=== PATIENT | female | born 1980 | race Caucasian/White ===

== ENCOUNTER 2025-05-06 10:38 | Inpatient (IN) | payer OTHER ==
[~2025-05-06] VITALS: Ht 172.7 cm; Wt 150.5 kg
[2025-05-06] VITALS (16 sets, daily range): BP systolic 109–137; BP diastolic 61–83
[2025-05-06 10:50] LABS: BASOPHILS 0.1 % (0.1-1.2); EOSINOPHILS 0 % (0.7-5.8); LYMPHOCYTES 3.3 % (19.3-51.7); MCH 28.0 PG (25.6-32.2); MCHC 33.0 g/dL (32.2-35.5); MCV 84.6 fL (79.4-94.8); MONOCYTES 5.4 % (4.7-12.5); NEUTROPHILS 90.8 % (34.0-71.1); RBC 5.08 M/uL (3.93-5.22)
[2025-05-06 11:10] LABS: LACTIC ACID, BLOOD 1.4 mmol/L (0.4-2.0)
[2025-05-06 11:11] LABS: ALCOHOL, MEDICAL <3 ng/dL (<3); ALT (SGPT) 46 U/L (14-59); AST (SGOT) 46 U/L (15-37); GLOMERULAR FILTRATION RATE,EST 110 mL/min (>60); PROTEIN, TOTAL 7.4 g/dL (6.4-8.2); UREA NITROGEN 9 mg/dL (7-18)
[2025-05-06 11:15] LABS: BLOOD/HGB, URINE NEGATIVE (Negative); KETONE, URINE NEGATIVE (Negative); LEUK ESTERASE, URINE NEGATIVE (negative); NITRITE, URINE NEGATIVE (negative)
[2025-05-06 11:21] LABS: EPITHELIAL CELLS, URINE SQUAMOUS 1+ /lpf (0-1+)
[2025-05-06 11:22] LABS: BACTERIA, URINE NONE SEEN /hpf (negative); CASTS, URINE NONE SEEN \\lpf; CRYSTALS, URINE NONE SEEN (0-1+); REFLEX CULTURE, URINE No (No)
[2025-05-06 11:39] LABS: AMPHETAMINES, URINE NEGATIVE (NEGATIVE); BARBITURATES, URINE NEGATIVE (NEGATIVE); BENZODIAZEPINE, URINE POSITIVE (NEGATIVE); CANNABINOID, URINE POSITIVE (NEGATIVE); COCAINE, URINE NEGATIVE (NEGATIVE); ECSTASY, URINE NEGATIVE (NEGATIVE); FENTANYL, URINE NEGATIVE (NEGATIVE); METHADONE, URINE NEGATIVE (NEGATIVE); OPIATES, URINE NEGATIVE (NEGATIVE); OXYCODONE, URINE NEGATIVE (NEGATIVE); PHENCYCLIDINE, URINE NEGATIVE (NEGATIVE)
[2025-05-06] MEDS ORDERED: KETAMINE in NS 50 MG/5 ML SYR IV ONE (11:45)
[2025-05-06] MEDS ORDERED: PANTOPRAZOLE SODIUM 40 MG/10 ML VIAL IV SCH (13:07)
[2025-05-06] MEDS ORDERED: MAGNESIUM SULFATE 4 GM/100 ML BAG IV ONE (13:15)
[2025-05-06] MEDS ORDERED: LACTATED RINGER'S 1,000 ML IV SCH (13:45)
--- NOTE | 2025-05-06 13:50 | NUR ---
PT ARRIVES TO UNIT VIA STRETCHER WITH RT AND ED RN - PT INTUBATED AND SEDATED WITH PROPOFOL. SLIDE TO BED WITHOUT DISTRESS OR COMPRIMISE OF LINES/TUBES. FAMILY AT BEDSIDE. VS STABLE. , ADMISSION ASSESSMENT STARTED. SOME HISTORY OBTAINED FROM - RX RECONCILE FROM [facility] REQUESTED THROUGH PHARMACY.
[2025-05-06] MEDS ORDERED: AMP/SULBACTAM SOD 3 GM in SODIUM CHLORIDE 0.9% 100 ML IV SCH (14:00)
--- NOTE | 2025-05-06 14:00 | NUR ---
PT UNDER 1:1 DIRECT OBS WITH Q15 MIN CHARTING BY CITY JAILER RELATED TO HIGH RISK SUICIDE SCORE. SKIN ASSESSMENT COMPLETED WITH LINN RN - 2 WELTS NOTED ON LEFT ELBOW APPROX 50 CENT PIECE IN SIZE. STATES UNKNOWN ORIGIN.
--- NOTE | 2025-05-06 14:24 | NUR ---
PT TRANSFERED TO UNIT , PLACED ON DRAGER 300 VENT , EET SECURE 23 @ TEETH BITEBLOCK IN PLACED , CUFF PRESSURE 28, AMBU W MASK AT HEAD OF BED/ INLINE SUCTION/ORAL READY FOR USE . RN DOING ANNITAL ASSESSMENT .
--- NOTE | 2025-05-06 14:45 | NUR ---
CALL FROM POISON CONTROL WITH SUGGESTION OF HCG LAB, CK AND REPEAT EKG 4 HOURS POST ORIGINAL. CALL PLACED TO MD TO REVIEW, ORDERS PLACED. PT REMAINS STABLE ON CURRENT VENT SETTINGS, TOLERATING WITHOUT S/S OF DISCOMFORT. VS STABLE ON MONITOR.
[2025-05-06] MEDS ORDERED: VRAYLAR1.5 MG PO (15:30)
[2025-05-06] MEDS ORDERED: LAMICTAL200 MG PO (15:31)
[2025-05-06] MEDS ORDERED: BUSPIRONE HCL10 MG PO (15:32)
[2025-05-06] MEDS ORDERED: NAPROXEN500 MG PO (15:33)
[2025-05-06] MEDS ORDERED: PAROXETINE HCL30 MG PO (15:35)
[2025-05-06] MEDS ORDERED: PRAZOSIN HCL2 MG PO (15:36)
[2025-05-06] MEDS ORDERED: OMEPRAZOLE40 MG PO (15:41)
[2025-05-06] MEDS ORDERED: VALIUM2 MG PO (15:41)
[2025-05-06] MEDS ORDERED: ONDANSETRON ODT4 MG PO (15:43)
--- NOTE | 2025-05-06 16:30 | NUR ---
PT REPOSISTIONED AND PASSIVE ROM COMPELTE. URINE NOTED TO HAVE SEDIMENT WITH BRIGHT PINK COLOR, CLOUDY. PINK COLOR ENOUGHT TO STAIN DRAINAGE TUBE. OG CONTENTS IN CANISTER BLUE/GREEN AND THIN, NOT BILE CONSISTENCY. MD AWARE AND VISUALIZED BOTH FINDINGS. UPON FURTHER REVIEW WITH HE STATES THAT SHE DOES TAKE NYQUIL "SOMETIMES" TO SLEEP, DENIES SEEING NYQUIL BOTTLE OF BENEDRYL BOTTLE IN BEDROOM AT SCENE. UNABLE TO ANSWER HOME MEDICATION REVIEW QUESTIONS, UNSURE OF MENTAL HEALTH DIAGNOSIS DESPITE ATIVAN RX LABEL PROVIDED WRITTEN FROM [facility].
--- NOTE | 2025-05-06 17:36 | NUR ---
POISON CONTROL UPDATED VIA TELEPHONE - NO NEW RECOMENDATIONS AT THIS TIME. URINE AND OG CONTENT COLORS REVIEWED WITH THEM, NOT A FINDING CONSISTENT WITH ATIVAN OR BACLOFEN THAT THEY ARE AWARE OF. COMP URINE TEST SEND OUT OBTAINED.
--- NOTE | 2025-05-06 18:30 | NUR ---
PT REPOSISTIONED AND BED BATH COMPLETE. ORAL CARE COMPLETED WITH PT GRIMACE AND COUGH WITH SUCTION. RESTRAINTS RELEASED AND ROM PREFORMED. ASSESSMENT UNCHANGED FROM PREVIOUS. VS STABLE, VENT SETTINGS SAME. KERFER MACHINE OPERATOR REMAINS IN ROOM FOR Q15 MINUTE CHARTING SUICIDE PROTOCOL.
--- NOTE | 2025-05-06 20:49 | NUR ---
ASSUMPTION OF CARE This RN assumed care of pt at 1900. Upon initial assessment, pt is intubated, sedated on propofol, RASS -3. Pt has minimal response to painful stimuli. No movement observed in BUE, only some movement of the foot noted to the RLE. Pt tolerating the vent well, initiating spontaneous breaths. ETT inline suction contents shah, thick, moderate amount. Cough/gag +. Lung sounds clear/diminished. Bowel sounds hypoactive/absent. OGT to LIWS with brown/green output. Kaplan in place with pink/yellow, cloudy output. Pt is vitally stable at this time.
--- NOTE | 2025-05-06 20:59 | NUR ---
Pt's heavenly left to go home, will return in AM.
[2025-05-06] MEDS ORDERED: ENOXAPARIN SODIUM 40 MG/0.4 ML SYR SUB-Q SCH (21:00)
--- NOTE | 2025-05-06 21:48 | NUR ---
"UPDATE: VBG RESULTS PH 7.442 | PCO2 39.3 | pO2 70 | HCO3 26.6 RESULTS DISCUSSED WITH RT & DR. WHITFIELD. VENT CHANGES FOLLOWS: FIO2 24% REPEAT VBG @ 0200"
[2025-05-07] VITALS (24 sets, daily range): BP systolic 106–164; BP diastolic 55–119
--- NOTE | 2025-05-07 02:43 | NUR ---
UPDATE: PT AGITATED, FIGHTING VENTILATOR, AND GAGGING ON TUBE AFTER Q2 TURN. RASS +1-2. SEDATION TITRATED WITH POSITIVE RESPONSE. SEE MEDICATION FLOWSHEET FOR DETAILS.
[2025-05-07 05:16] LABS: BASOPHILS 0.3 % (0.1-1.2); EOSINOPHILS 0.2 % (0.7-5.8); LYMPHOCYTES 12.2 % (19.3-51.7); MCH 28.1 PG (25.6-32.2); MCHC 33.2 g/dL (32.2-35.5); MCV 84.5 fL (79.4-94.8); MONOCYTES 6.8 % (4.7-12.5); NEUTROPHILS 80.0 % (34.0-71.1); RBC 4.31 M/uL (3.93-5.22)
[2025-05-07 05:34] LABS: GLOMERULAR FILTRATION RATE,EST 116.0 mL/min (>60); UREA NITROGEN 9.0 mg/dL (7-18)
[2025-05-07] MEDS ORDERED: POTASSIUM CHLORIDE 40 MEQ in DEXTROSE 5% 250 ML IV ONE (08:00)
[2025-05-07] MEDS ORDERED: ENOXAPARIN SODIUM 40 MG/0.4 ML SYR SUB-Q SCH (09:00)
--- NOTE | 2025-05-07 09:24 | NUR ---
IN PATIENT'S ROOM FOR AM ASSESSMENT, VITALS, CREMATORY ATTENDANT. PT'S NELLA AT BEDSIDE. PT REMAINS 1:1 WITH PIGS FEET CLEANER IN ROOM FOR SAFETY PRECAUTIONS. PT ON VENT WITH SETTINGS OF VT 420, FI02 24%, VC/AC 16, PEEP 5. INITIALLY, PROPOFOL WAS AT 50 MCG/KG/MIN AND RASS WAS -5. CXR COMPLETE AND PT DID NOT AROUSE TO THIS STIMULI. SCDs IN PLACE. IVF CONTINUE AT 125 ML/HR. AFTER SPEAKING WITH MD, PT'S SEDATION TURNED DOWN AROUND 0840, AND TURNED DOWN AGAIN AT 0905. PT BECOMES RESTLESS, SEEMINGLY AGITATED, HR ELEVATED TO 120s, RR UP TO 35-40 AND SEEMS UNCOMFORTABLE. MD AT BEDSIDE AND ASSESSES PATIENT AND DECIDES TO RETURN PATIENT TO SEDATION AND TRY SAT AGAIN TOMORROW. PROPOFOL TURNED BACK TO 30 MCG/KG/MIN. RT IN ROOM AND PLACES PATIENT ON SBT. OG TUBE DRAINING THIN BROWN LIQUID. ROSA PUTTING OUT YELLOW URINE WITH SOME SEDIMENT NOTED. PT NOW STARTING TO CALM. UPDATED ON PLAN OF CARE WHILE MD IN ROOM AND BY THIS RN. RESTRAINTS IN PLACE TO PROTECT PATIENT.
--- NOTE | 2025-05-07 10:00 | NUR ---
PATIENT UNDERWENT SAT AND SBT. PT FAILED SAT BUT DIDN'T NECESSARILY FAIL SBT. PT TOO AGITATED AND RESTLESS FOR SAT TO BE SUCCESSFUL, AND WILL BE ATTEMPTED AGAIN TOMORROW. 1:1 OBS REMAINS.
[2025-05-07 11:18] LABS: ALT (SGPT) 29.0 U/L (14-59); AST (SGOT) 23.0 U/L (15-37); PROTEIN, TOTAL 6.2 g/dL (6.4-8.2)
--- NOTE | 2025-05-07 11:38 | NUR ---
PT IN ROOM AT BEDSIDE.
[2025-05-07] MEDS ORDERED: PHARMACY RENAL DOSE ADJUSTMENT 1 DOSE MISC PO SCH (12:00)
--- NOTE | 2025-05-07 12:12 | NUR ---
PT COUGHING AND GRIMANCING. MOUTH AND VENTILATION SUCTION COMPLETED AND PT CONTINUED TO COUGH. PT PROPOFOL TITRATED UP. AFTER TWO MINUTES PT FACIAL FEATURES MORE RELAXED AND PT NO LONGER COUGHING.
--- NOTE | 2025-05-07 12:40 | NUR ---
MIDLINE INSERTION NOTE: ASKED BY DR. WHITFIELD TO EVAL PATIENT FOR POTENTIAL MIDLINE PLACEMENT. PATIENT HAS IV 18 G IN RIGHT UPPER ARM CURRENTLY. LEFT ARM EVALUATED FIRST AND CEPHALIC VEIN IS VISIBLE BUT NOT STRAIGHT, AND NOT A GOOD CANDIDATE. BASILIC VEIN IS LARGE, STRAIGHT AND EASILY COLLAPSABLE. ESTIMATED BY SITE [facility] US THAT AN 18G WOULD TAKE UP ABOUT 34% OF VEIN DIAMETER. 1% LIDO USED TO NUMB SKIN AFTER CHLORAPREP USED. VEIN ACCESSED ON 1ST ATTEMPT AND MIDLINE GUIDED INTO VEIN. DIFFICULTY WITH THREADING CATHETER COMPLETELY IN BUT BLOOD RETURN IS PRESENT. ABLE TO FLOAT CATHETER IN MUCH POSSIBLE. 1 CM IS LEFT EXPOSED. BLOOD RETURN IS STILL ABLE TO BE ASPIRATED WHEN TENSION IS PLACED ON CATHETER AND ASK WELL TENSION PULLED UPWARD PULLING LARGE SKIN FLAP UP ON UPPER ARM. EDUCATION MATERIAL LEFT IN CHART AND REPORT GIVEN TO KENDY AMARAL.
[2025-05-07] MEDS ORDERED: ACETAMINOPHEN 650 MG SUPP PR PRN (13:30)
--- NOTE | 2025-05-07 13:30 | NUR ---
PATIENT GIVEN FULL BED BATH WITH LINEN CHANGE. PT TOLERATED WELL. ROSA CARE PROVIDED. SKIN IS INTACT THROUGHOUT. SMALL AMOUNTS OF BM SMEAR WERE NOTED WHEN WIPING PATIENT'S RECTAL AREA. SCDs REMAIN ON. IV POTASSIUM HAS COMPLETED. RESTRAINTS REMAIN IN PLACE FOR PROTECTION OF ETT.
--- NOTE | 2025-05-07 17:20 | NUR ---
PATIENT RESTING IN BED AT THIS TIME WIHT AT BEDSIDE. 1:1 SUPERVISION REMAINS. PT CURRENTLY ON 50 MCG/KG/MIN OF PROPOFOL AND RASS IS -4. WHEN PATIENT IS LESS SEDATED, SHE DOES DISPLAY SOME SIGNS OF AGITATION BY SOME TWITCHING, HEART RATE ELEVATED AND COUGHING AGAINST THE ETT. URINE OUTPUT HAS DECREASED THIS AFTERNOON, BUT OVER 1 L WAS DRAINED EARLIER TODAY.
[2025-05-07] MEDS ORDERED: LORazepam 2 MG/ML VIAL IV STA (18:23)
--- NOTE | 2025-05-07 18:40 | NUR ---
PATIENT BECOMING MORE AGITATED EVEN WITH PROPOFOL AT 50 MCG/KG/MIN. HR ELEVATED, TEMP UP TO 100.4, RR UP TO 30s, TWITCHING AND OVERALL APPEARING RESTLESS. STAT DOSE OF 2 MG IV ATIVAN GIVEN. AT 1829 PATIENT HAD A SMALL BURST OF SVT, 160s. AFTER ATIVAN WAS GIVEN, HR SETTLING DOWN TO 70-80s, RR DOWN TO 26 AND PT APPEARING MORE CALM. PT CONFIRMS THAT PATIENT TAKES HER VALIUM PRESCRIPTION DAILY 1-[address] WHITFIELD AWARE OF SVT. WILL CONTINUE TO MONITOR.
[2025-05-07] MEDS ORDERED: LORazepam 2 MG/ML VIAL IV PRN (19:15)
--- NOTE | 2025-05-07 19:15 | EKG ---
[facility] [address] [place], [place] [address] Signed Normal sinus rhythm T wave abnormality, consider anterolateral ischemia Abnormal ECG No previous ECGs available Confirmed by Rosie Grijalva MD ([id number]) on 05/07/2025 7:14:50 PM Electronically Signed By: ROSIE GRIJALVA MD 05/07/251914 PATIENT NAME: SUNITHA ARIAS Electrocardiogram DATE OF : 80 PHYSICIAN: ROSIE GRIJALVA MD REPORT #: [id number] REPORT IS CONFIDENTIAL AND NOT TO BE RELEASED WITHOUT AUTHORIZATION
--- NOTE | 2025-05-07 19:15 | EKG ---
[facility] [address] [place] [address] Signed Normal sinus rhythm T wave abnormality, consider inferior ischemia T wave abnormality, consider anterior ischemia Abnormal ECG When compared with ECG of 06-MAY-2025 11:05, Questionable change in QRS axis Nonspecific T wave abnormality now evident in Inferior leads Confirmed by Rosie Grijalva MD ([id number]) on 05/07/2025 7:15:28 PM Electronically Signed By: ROSIE GRIJALVA MD 05/07/251914 PATIENT NAME: SUNITHA ARIAS Electrocardiogram DATE OF : 80 PHYSICIAN: ROSIE GRIJALVA MD REPORT #: [id number] REPORT IS CONFIDENTIAL AND NOT TO BE RELEASED WITHOUT AUTHORIZATION
[2025-05-07] MEDS ORDERED: DEXTROSE 5% - NACL 0.45% 1,000 ML IV SCH (20:15)
[2025-05-07] MEDS ORDERED: IBLOOD GLUCOSE TEST STRIP 1 EA TEST VI SCH (20:15)
--- NOTE | 2025-05-07 23:17 | NUR ---
Pt had a large liquid/watery stool. During mayela care, pt became increasingly more agitated. RR 30's, fighting ventilator, HR elevated, desaturated to 70's briefly. Suctioned, scant amount of blood tinged sputum. Pt's breathing labored with moderate accessory muslce use. Seen by RT at bedside. PRN Ativan given per order, sedation increased. See medication flowsheet. Improvement in pt condition after the above interventions.
[2025-05-08] VITALS (25 sets, daily range): BP systolic 101–188; BP diastolic 59–137
[2025-05-08] MEDS ORDERED: ALBUTEROL/IPRATROPIUM 3 ML NEB INH PRN (04:30)
[2025-05-08 05:50] LABS: BASOPHILS 0.4 % (0.1-1.2); EOSINOPHILS 1.9 % (0.7-5.8); LYMPHOCYTES 26.4 % (19.3-51.7); MCH 28.2 PG (25.6-32.2); MCHC 33.2 g/dL (32.2-35.5); MCV 84.9 fL (79.4-94.8); MONOCYTES 7.0 % (4.7-12.5); NEUTROPHILS 63.9 % (34.0-71.1); RBC 4.43 M/uL (3.93-5.22)
[2025-05-08 05:59] LABS: GLOMERULAR FILTRATION RATE,EST 113.0 mL/min (>60); UREA NITROGEN 4.0 mg/dL (7-18)
--- NOTE | 2025-05-08 08:18 | NUR ---
REPORT REC'D AND PATIENT CARE RESUMED BY THIS RN. PATIENT ON 80 MCG/KG/MIN OF PROPOFOL AT SHIFT CHANGE AND RESTING COMFORTABLY. WORKING ON TITRATING THIS DOWN AND IS CURRENTLY AT 70 MCG/KG/MIN. PT HAD INCONTINENCE OF BM, AND WAS CHANGED X3 PERSON ASSIST WITH N EW ATTENDS. STOOL IS BROWN AND SOFT. PT'S NELLA IN ROOM AND GIVEN UPDATE. PLAN OF CARE DISCUSSED AND WILL AGAIN ATTEMPT SAT/SBT TODAY. RESTRAINTS REMAIN IN PLACE BILATERALLY FOR PROTECTION OF ETT. PT HAD FREQ BOUTS OF AGITATION THROUGH THE NIGHT AND REQUIRED MORE SEDATION. SCDs REMAIN ON. ROSA DRAINING CLEAR YELLOW URINE.
[2025-05-08 08:29] LABS: ALT (SGPT) 35.0 U/L (14-59); AST (SGOT) 28.0 U/L (15-37); PROTEIN, TOTAL 6.4 g/dL (6.4-8.2)
--- NOTE | 2025-05-08 09:20 | NUR ---
Pt remains on ventilator. Spouse in room and answers questions. Per spouse pt was having back pain. She recieved Baclofen from her mom and has other meds from (diazepam) from [facility] where she goes for mental health. Per spouse they live in a house with 3 steps. Pt usually does not have issues getting in or out of the house. Per Spouse, Dominick, they have had a very rough year with custody for children, multiple house repairs, and fighting in their relationship. He denies pt has had a back injury, she complained of back pain and took meds for pain and went to bed. Spouse states he attempted to awake pt in the am and realized she had vomited and he could not awaken. Dominick is tearful during this conversation. He plans on not leaving pt. I gave him info for [place] and [place]. He states he works in [place]. We looked up the [place] leave and it is the same as [place]. He will apply on line. He denies any needs at this time. States concern Darshana may not wake up or have deficits when she does. They do not have financial concerns. She works at [employer] and he works in [employer] education lia[employer]. 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 Her 18 yo son lives with them.
--- NOTE | 2025-05-08 11:06 | NUR ---
PROPOFOL TITRATED DOWN AND TURNED OFF AT 1023. PATIENT STARTS TO AWAKEN MORE AND IS COUGHING. DEEP SUCTIONED 2-3 TIMES WITH SOME BLOODY TINGED SPUTUM NOTED. PATIENT IS OPENING EYES BETTER TODAY VS YESTERDAY, BUT IS NOT FOLLOWING COMMANDS OF YET. PT'S AT BEDSIDE AND WORKING HARD TO HELP KEEP PATIENT CALM. AFTER A FEW MINUTES OF DECREASING STIMULI, PATIENT IS SETTLING DOWN HERSELF AND RESTING A LITTLE MORE CALMLY. PATIENT IS NOTED TO BE TWITCHING SOME, WITH BOTH LEGS TURNING INWARD WHEN SHE TWITCHES. GOOSEBUMPS ALSO NOTED ON LEFT ARM. 1:1 SUPERSIVION WITH SITTER REMAINS IN PLACE.
--- NOTE | 2025-05-08 12:06 | NUR ---
DR. WHITFIELD GIVEN AN UPDATE BY THIS RN. PATIENT HAS BEEN ON SBT SINCE 1130 PER RT AND WILL BE TRYING SOME WEANING PARAMETERS AT 1230. PT'S REMAINS AT BEDSIDE AND ATTENTIVE TO PATIENT. PATIENT OPENING EYES SPONTANEOUSLY BUT NOT FOLLOWING ANY COMMANDS OF THIS TIME. SCDs REMAIN ON. PT NOTED TO BE MOVING ALL 4 EXT BUT NOT PURPOSEFULLY BUT WHEN COUGHING.
[2025-05-08] MEDS ORDERED: LORazepam 2 MG/ML VIAL IV SCH (13:00)
--- NOTE | 2025-05-08 13:37 | NUR ---
PATIENT UNABLE TO FOLLOW COMMANDS TO PARTICIPATE IN SBT AND WEANING PARAMETERS. PT PLACED BACK ON VENT SETTINGS OF VT 420, VC/AC 14, FI02 24%, AND PEEP OF 5. PATIENT GIVEN SCHEDULED 1 MG ATIVAN. BED BATH AND FULL LINEN CHANGE PROVIDED. PT TOLERATED FAIR WITH SOME COUGHING AND GAGGING ON ETT. PATIENT THEN HAS ANOTHER BM RIGHT AFTER BEING CHANGED. TUBE FEEDS ARE TO BE STARTED TODAY. PRECEDEX GTT TO BE STARTED FOR SEDATION. SCDs OFF FOR A SHORT TIME TO ALLOW PATIENT TO REST. PT'S HAS LEFT FOR LITTLE WHILE BUT WILL RETURN LATER TODAY. PT NOW HAS VISITORS- HER FATHER AND HER STEP MOTHER IN ROOM.
--- NOTE | 2025-05-08 13:43 | NUR ---
PRECEDEX GTT STARTED AT 0.2 MCG/KG/HR. RASS GOAL IS -1.
--- NOTE | 2025-05-08 14:09 | NUR ---
UR CLINICAL REVIEW: MCG-PER MCG REVIEW MEETS INPT FOR DRUG OVERDOSE WITH NEED FOR INTUBATION AND MONITORING INPT 05/06/25 @ 1302 ORDER MATCHES REG CLINICALS FAXED TO [facility] FOR AUTH REVIEW DISCHARGE DISPO PENDING FURTHER MENTAL HEALTH EVAL WHEN STABLE 05/08/25 DC REVIEW
--- NOTE | 2025-05-08 15:32 | NUR ---
TUBE FEEDS STARTED AT 20 ML/HR, JEVITY 1.2, THROUGH OG TUBE. PATIENT IS RESTING WELL ON PRECEDEX AT 0.3 MCG/KG/HR. PT'S NELLA REMAINS IN ROOM. PT REMAINS 1:1 SUICIDE OBS. WILL CONTINUE TO MONITOR.
[2025-05-08] MEDS ORDERED: NACL IV SCH (18:30)
[2025-05-08] MEDS ORDERED: FENTANYL CITRATE IV SCH (18:30)
[2025-05-08] MEDS ORDERED: FENTANYL CITRATE-0.9 % NACL/PF 100 ML IV SCH (19:00)
--- NOTE | 2025-05-08 19:15 | NUR ---
FENTANYL GTT STARTED AT 12.5 MCG/HR. PT HAS BEEN RESTING MOSTLY IN THE LAST COUPLE OF HOURS WITH PRECEDEX AT 0.3 OR 0.4 MCG/KG/HR. PRECEDEX IS CURRENTLY AT 0.3 MCG/KG/HR. IVF CONTINUE AT 125 ML/HR. SCDs REMAIN ON. PT COUGHING AND MOVING LEGS UP IN BED IN DISCOMFORT. WILL CONTINUE TO MONITOR.
--- NOTE | 2025-05-08 19:45 | NUR ---
REPORT RECEIVED FROM ROBERT LARRY. PT HAS JUST BEEN INC OF STOOL, ATTENDS CHANGED, ELISA AND ROSA CARE DONE AND PT REPOSITIONED UP IN BED. PT DID OPEN EYES DURING THIS EPISODE AND DID COUGH SOME BUT OVERALL STAYED CALM AND TOLERATED MOVEMENT WELL. BILAT WRIST RESTRAINTS IN PLACE, PT IS HIGH RISK FOR SUICIDE AND IS UNDER DIRECT OBS WITH 1:1 SITTER.
--- NOTE | 2025-05-08 21:00 | NUR ---
PT HAS BEEN FAIRLY RESTLESS AND HAS NOT BEEN EASILY CALMED. ATTEMPTED TO TITRATE PRECEDEX UP BUT WITH THE HIGHER DOSE OF PRECEDEX HER HEARTRATE DROPS DOWN TO 50'S, P WAVES DISAPPEAR SO PRECEDEX TURNED BACK DOWN. WILL CONT TO MONITOR, SCHEDULED ATIVAN GIVEN WHICH SHE DID SEEM TO RESPOND TO.
--- NOTE | 2025-05-08 21:58 | NUR ---
PT IS OVERALL CALM AND RESTFUL, DOES OCCASIONALLY START TO COUGH AND GAG ON ETT AND GRIMACE AND TRY TO PULL ARMS UP BUT THEN GOES BACK TO SLEEP.
--- NOTE | 2025-05-08 22:33 | NUR ---
PT AWAKE AGAIN AND TRYING TO RAISE UP OFF BED, BITING ETT SETTING OFF VENT ALARMS, PULLING AT RESTRAINTS. PRN ATIVAN GIVEN 1MG IV. PT DOES CALM A FEW MINUTES AFTER ATIVAN GIVEN.
--- NOTE | 2025-05-08 23:00 | NUR ---
CALL TO DR WHITFIELD TO UPDATE HIM ON PTS HR/RHYTHM WITH PRECEDEX AND PTS AGITATION AND NONCOMPLIANCE WITH VENT, ORDER TO SWITCH TO VERSED DRIP FOR SEDATION.
[2025-05-09] VITALS (22 sets, daily range): BP systolic 120–189; BP diastolic 76–107
--- NOTE | 2025-05-09 00:24 | NUR ---
PT INC STOOL, BECAME VERY AGITATED WITH ELISA CARE AND TURNING, VERY NONCOMPLIANT WITH VENT, A LOT OF COUGHING AND BITING AT AND GAGGING ON TUBE. VERSED DRIP IS NOW INFUSING, PRECEDEX IS OFF. PT CALMED WHEN CARE ACTIVITIES WERE DONE. CONT WITH 1:1 DIRECT OBS WITH BILAT SOFT WRIST RESTRAINTS IN PLACE.
--- NOTE | 2025-05-09 03:36 | NUR ---
PT AWAKE, AGITATED, COUGHING, PULLING AT RESTRAINTS, HR UP TO 115'S, RR 22 OVER THE VENT, VERSED TITRATED UP TO 4MG/HR.
--- NOTE | 2025-05-09 05:35 | NUR ---
PT WAS INC STOOL, WITH ANY STIMULATION PT WAKES AND STARTS GAGGING ON ETT AND STRAINING AGAINST RESTRAINTS. PRN ATIVAN GIVEN, PT DID CALM, CLEAN LINENS PLACED UNDER PT. VERSED DRIP TITRATED UP TO 14MG/HR.
[2025-05-09 05:48] LABS: BASOPHILS 0.5 % (0.1-1.2); EOSINOPHILS 2.2 % (0.7-5.8); LYMPHOCYTES 16.2 % (19.3-51.7); MCH 28.0 PG (25.6-32.2); MCHC 34.0 g/dL (32.2-35.5); MCV 82.3 fL (79.4-94.8); MONOCYTES 7.1 % (4.7-12.5); NEUTROPHILS 73.7 % (34.0-71.1); RBC 4.29 M/uL (3.93-5.22)
[2025-05-09 06:01] LABS: GLOMERULAR FILTRATION RATE,EST 118.0 mL/min (>60); UREA NITROGEN 6.0 mg/dL (7-18)
--- NOTE | 2025-05-09 06:45 | NUR ---
CALL TO DR WHITFIELD TO UPDATE ON EVENTS OF THE NIGHT, NEW KCL LEVEL, PT NOT TOLERATING VENT. NEW ORDERS FOR KCL GIVEN AND PLAN TO TRY TO EXTUBATE THE PT.
[2025-05-09] MEDS ORDERED: POTASSIUM CHLORIDE 40 MEQ in DEXTROSE 5% 250 ML IV ONE ×3 (07:00→21:00)
[2025-05-09] MEDS ORDERED: POTASSIUM CHLORIDE 20 MEQ/15 ML CUP PT ONE (07:00)
--- NOTE | 2025-05-09 07:05 | NUR ---
PT INC STOOL, BED CHANGE/ELISA CARE DONE. PT TOLERATED CARES WITH LESS GAGGING AND BITING OF TUBE THAN PREVIOUSLY. AFTER CARES DONE VERSED DRIP TURNED DOWN TO 10MG/HR IN ANTICIPATION OF BREATHING TRIAL TODAY.
--- NOTE | 2025-05-09 08:02 | NUR ---
IN PATIENT'S ROOM FOR AM ASSESSMENT, VITALS AND SWITCHBOARD INSTALLER. PT'S LINEN AND ATTENDS CHANGED JUST PRIOR TO CHANGE OF SHIFT AND NEW GREEN LIFT SHEET PLACED UNDER PATIENT. ETT NOTED TO BE AT 21 AT THE TEETH THIS AM, AND THIS WAS 23 AT THE TEETH YESTERDAY. RT ADVANCES TUBE BACK IN AND CXR COMPLETE. VBG ALSO DRAWN THIS AM. 2 NEW IV SITES IN ARMS PLACED THIS AM BY PVC LOADER RN. PT CONTINUES TO HAVE LOOSE LIQUID BMs. TUBE FEEDS ARE CURRENTLY GOING AT 30 ML/HR AND WILL BE INCREASED TO 40 ML/HR PER ORDER. ORAL POTASSIUM GIVEN PER OG TUBE AND IV POTASSIUM INFUSTING- K 2.8 THIS AM. IV MAG ALSO ORDERED.
[2025-05-09] MEDS ORDERED: MAGNESIUM SULFATE 2 GM/50 ML BAG IV SCH (09:00)
[2025-05-09] MEDS ORDERED: KETAMINE HCL IN NACL, ISO-OSM 100 ML IV SCH (09:00)
--- NOTE | 2025-05-09 09:49 | NUR ---
In and spoke with spouse. He is slightly upset commenting he was told he couldn't spend the night last night. I discussed it is not best to spend the night as everyone needs rest. He would be awakened throughout the night if he stayed. He then commented he went home and he and son had a three hour much needed visit. He again is on the verge of tears during our conversation. He asks if I can assist him with FMLA and [employer] leave. I printed the paper work and returned it to his room. Multiple family members have arrived. Let him know to tell the nurses if he needs help later. I will be glad to help him fill out the paperwork.
--- NOTE | 2025-05-09 10:53 | NUR ---
VISITED DURING SPIRITUAL CARE ROUNDS. PT UNABLE TO VISIT, SUPPORTED BY AND FAMILY IN ROOM. ALL EXPRESSED SITUATIONALLY CONSISTENT EMOTIONS, NO IMMEDIATE NEEDS. [employer] SALES PROVIDED SUPPORTIVE PRESENCE, HOSPITALITY, PRAYER. AND FAMILY EXPRESSED GRATITUDE, HOPE.
--- NOTE | 2025-05-09 10:58 | NUR ---
PATIENT CONTINUES TO BE RESTLESS. SEDATION REMAINS OFF. PT'S AND OTHER FAMILY MEMBERS ARE AT BEDSIDE. ATTENDS CHANGED AFTER SMALL INCONTINENCE OF LIQUID BM. PT SITTING UP MORE IN BED BUT STILL WANTING TO LEAN TO THE LEFT. HR UP TO 120-130s AT TIMES WITH AGITATION AND BP UP TO 178/117. DISCUSSED WITH DR. WHITFIELD ABOUT GIVING PRN ATIVAN AND HE AGREES THAT SHE SHOULD HAVE SOME FOR AGITATION. WILL CONTINUE TO MONITOR.
--- NOTE | 2025-05-09 11:08 | NUR ---
POISION CONTROL CALLED THIS RN AND GIVEN A DAILY UPDATE ON HOW PATIENT IS DOING. THEY REITERATED THAT THIS PATIENT'S PROGRESS APPEARS CONGRUENT WITH HOW A PATIENT LOOKS GOING THROUGH AN OVERDOSE OF BACLOFEN. NO NEW RECOMMENDATIONS. NEW ORDER REC'D TO GIVE PAXIL PER OG TUBE.
--- NOTE | 2025-05-09 12:40 | NUR ---
SBT STARTED AT 1230. PT AGITATED, RESTLESS, AND HR CURRENTLY IN THE 110s UP TO 120s. PT'S REMAINS IN ROOM AND ATTENTIVE TO PATIENT. WILL CONTINUE TO MONITOR. PT REMAINS OFF SEDATION.
[2025-05-09 13:25] LABS: GLOMERULAR FILTRATION RATE,EST 110.0 mL/min (>60); UREA NITROGEN 5.0 mg/dL (7-18)
--- NOTE | 2025-05-09 13:30 | NUR ---
DISCHARGE REVIEW: INTUBATED, CONTINUED NEED FOR IV MEDS, CARDIAC MONITORING, TRENDING LABS, SUICIDE PRECAUTIONS, IV ANTIBIOTICS DC PLAN PENDING FURTHER TREATMENT, EVAL BY MENTAL HEALTH PROVIDER. ADD: PENDING
[2025-05-09] MEDS ORDERED: FUROSEMIDE 40 MG/4 ML VIAL IV ONE (14:00)
--- NOTE | 2025-05-09 15:30 | NUR ---
PATIENT BECAME MORE AGITATED BY 1400 AND HAD BEEN OFF SEDATION SINCE 0900. DR. WHITFIELD NOTIFIED AND IN ROOM TO SEE PATIENT. RT PLACES PATIENT BACK ON VENT SETTINGS OF VT 420, VC/AC 14, FI02 21% AND PEEP 5. KETAMINE DRIP WAS STARTED AT 1400 AT 0.5 MG/KG/HR. PATIENT THEN TAKEN DOWN TO CT AROUND [address] OF HEAD. KETAMINE TITRATED UP TO 0.75 MG/KG/HR BEFORE GOING DOWN TO CT. PT TOLERATED CT SCAN WELL.
[2025-05-09] MEDS ORDERED: FENTANYL CITRATE-0.9 % NACL/PF 100 ML IV SCH (18:30)
--- NOTE | 2025-05-09 18:47 | NUR ---
PATIENT HAS BEEN RESTING FAIRLY WELL ON KETAMINE GTT AT 0.75 MG/KG/HR. PT TURNED FROM RIGHT SIDE TO ALLOWING THE BED TO MANUALLY TURN PATIENT. PATIENT SEEMINGINGLY MORE AGITATED AND RESTLESS, GAGGING ON ETT. ORAL SUCTION PROVIDED AND DEEP SUCTIONING. PT THEN STARTING TO VOMIT TUBE FEED CONTENTS AND THIS WAS SUCTIONED FROM MOUTH AND CLEANED UP. TUBE FEEDS STOPPED AND DISCONNECTED. MD TO BE NOTIFIED.
[2025-05-09 19:10] LABS: GLOMERULAR FILTRATION RATE,EST 115.0 mL/min (>60); UREA NITROGEN 5.0 mg/dL (7-18)
--- NOTE | 2025-05-09 19:30 | NUR ---
REPORT RECEIVED FROM ROBERT LARRY. PT IS RESTING ON VENT, COMPLIANT WITH VENT AND ETT, KETAMINE INFUSING AT 0.75MG/KG/HR. PT IS ON DIRECT OBS 1:1 WITH HIGH SUICIDE RISK PRECAUTIONS PER POLICY. PT HAS RECTAL TUBE IN PLACE, ROSA IN PLACE, OG TUBE IS CLAMPED. CURRENT RASS -3 WHEN PT IS NOT STIMULATED.
--- NOTE | 2025-05-09 19:45 | NUR ---
ASSESSMENT DONE, PT IS ON VENT, TOLERATING IT AT THIS TIME, VC/AC, TV 420, FIO2 21%, PEEP 5, RR 16, PT IS BREATHING 18-20 ON HER OWN WITH SPO2 94%. LUNGS CLEAR. ETT HAS MUCH LESS SECRETIONS THAN IT DID LAST NIGHT. PT IS SEDATED ON KETAMINE DRIP AT 0.75MG/KG/HR. SHE DOES RESPOND TO VERBAL/PHYSICAL STIMULI, DOES NOT OPEN EYES OR FOLLOW COMMANDS. PUPILS BRISK ON RIGHT, SLUGGISH ON LEFT. SHE HAS WRIST RESTRAINTS IN PLACE, CMS INTACT. DIRECT OBS SITTER IN ROOM WITH PT.SHE HAS RECTAL TUBE IN PLACE DRAINING LIQUID BROWN STOOL.
--- NOTE | 2025-05-09 20:30 | NUR ---
PT HAD SOME LEAKAGE AROUND RECTAL TUBE, SHE WAS CLEANED UP AND BARRIER CREAM APPLIED TO ELISA AREA, CATH CARE DONE. RECTAL TUBE REMAINS IN PLACE AND FUNCTIONAL, ROSA PATENT ALSO DRAINING WELL, DARK YELLOW URINE. DURING THIS CARE SHE WOKE UP SOME AND STARTED GAGGING ON ETT, KETAMINE DRIP TURNED UP TO MG/KG/HR. SCHEDULED ATIVAN WAS ALSO GIVEN, SHE DID CALM AFTERWARDS AND WAS ABLE TO TOLERATE CARE ACTIVITIES WITH MINIMAL AGITATION.
--- NOTE | 2025-05-09 20:31 | NUR ---
PT HAD SOME LEAKAGE AROUND RECTAL TUBE, SHE WAS CLEANED UP AND BARRIER CREAM APPLIED TO ELISA AREA, CATH CARE DONE. RECTAL TUBE REMAINS IN PLACE AND FUNCTIONAL, ROSA PATENT ALSO DRAINING WELL, DARK YELLOW URINE. DURING THIS CARE SHE WOKE UP SOME AND STARTED GAGGING ON ETT, KETAMINE DRIP TURNED UP TO 1 MG/KG/HR. SCHEDULED ATIVAN WAS ALSO GIVEN, SHE DID CALM AFTERWARDS AND WAS ABLE TO TOLERATE CARE ACTIVITIES WITH MINIMAL AGITATION.
[2025-05-09] MEDS ORDERED: POTASSIUM CHLORIDE 10 MEQ/100 ML BAG IV SCH (21:00)
[2025-05-09] MEDS ORDERED: MICONAZOLE NITRATE 1 EA BTL TOP SCH (21:00)
--- NOTE | 2025-05-09 22:30 | NUR ---
PT GAGGING ON TUBE, PRN ATIVAN GIVEN PER EMAR.
[2025-05-10] VITALS (23 sets, daily range): BP systolic 110–165; BP diastolic 73–107
--- NOTE | 2025-05-10 00:41 | NUR ---
PT RESTING, TOLERATING VETN, VSS, WRIST RESTRAINTS IN PLACE.
--- NOTE | 2025-05-10 03:06 | NUR ---
PT RESTLESS AND BITING, GAGGING ON ETT, KETAMINE DRIP TITRATED UP TO 1.5 MG/KG/HR.
--- NOTE | 2025-05-10 04:00 | NUR ---
PT HAS BEEN TOLERATING ETT BETTER SINCE TURNING KETAMINE UP.
[2025-05-10 05:26] LABS: BASOPHILS 0.2 % (0.1-1.2); EOSINOPHILS 1.1 % (0.7-5.8); LYMPHOCYTES 15.6 % (19.3-51.7); MCH 28.2 PG (25.6-32.2); MCHC 33.7 g/dL (32.2-35.5); MCV 83.8 fL (79.4-94.8); MONOCYTES 8.2 % (4.7-12.5); NEUTROPHILS 74.4 % (34.0-71.1); RBC 4.50 M/uL (3.93-5.22)
[2025-05-10 05:35] LABS: GLOMERULAR FILTRATION RATE,EST 114.0 mL/min (>60); UREA NITROGEN 9.0 mg/dL (7-18)
--- NOTE | 2025-05-10 05:58 | NUR ---
KETAMINE DRIP TURNED DOWN IN ANTICIPATION OF WEANING TRIAL/AWAKENING TRIAL THIS AM.
--- NOTE | 2025-05-10 07:03 | NUR ---
PTS ATTENDS CHECKED, SMALL AMT LEAKAGE FROM AROUND RECTAL TUBE, LINEN CHANGE DONE. ELISA AREA REDDENED, BARRIER CREAM APPLIED. PT TOLERATED TURNING AND CHANGING BETTER THAN SHE HAS PREVIOUSLY. SHE DOES OPEN EYES ON COMMAND. KETAMINE DRIP TURNED DOWN TO 0.5MG/KG/HR. PT REPOSITIONED UP IN BED.
[2025-05-10] MEDS ORDERED: POTASSIUM CHLORIDE 40 MEQ in DEXTROSE 5% 250 ML IV ONE (07:45)
--- NOTE | 2025-05-10 07:45 | NUR ---
THIS RN RECEIVED REPORT FROM NIGHT RN, REVIEWED W/ RN AT BEDSIDE. NOW PRESENT IN THE ROOM. PT CURRENTLY REMAINS ON VENTILATOR, SETTINGS VT 420, FI02 21, PEEP 5, PIP17; SIZE 7, 23 @ TEETH. PT HAD OG IN PLACE, CLAMPED. KETAMINE RUNNING AT 0.5MG/KG/HR AT THIS TIME. ROSA DRAINING TERI URINE, RECTAL TUBE IN PLACE WITH LIQUID BROWN OUTPUT. PT RESTRAINTS IN PLACE WITH 1:1 SITTER FOR SI/SAFETY. ARJO BED IN PLACE, IT DOES NEED SOME ADJUSTING PATIENT NEEDS REPOSITIONED IN THE BED, ANTHONY CURRENTLY UNDER PATIENT. SCDS IN PLACE.
[2025-05-10 07:59] LABS: ALT (SGPT) 54.0 U/L (14-59); AST (SGOT) 35.0 U/L (15-37); PROTEIN, TOTAL 6.8 g/dL (6.4-8.2)
--- NOTE | 2025-05-10 10:22 | NUR ---
ORAL CARE DONE , ADVANCED EET 20 ORIGINAL 23@TEETH SECURED WITH BB INPLACED , MOVED TO MIDDLE OF THE MOUTH PATIENT IS MOVING MOUTH AROUND AND PUSHING TUBE SECURE AND BITBLOCK FORWARD , CUFF PRESSURE CHECKED PRESSURE 28, SMALL BRIENF PLACEMENT TO CPAP , PT NOT QUITE READY SHALLOW BREATHS AND APNEA VENTILATION ALARMS . WILL WAIT UNTIL PATIENT IS MORE WAKEFUL. SHE DID OPEN EYES AND FOLLOWED INSTRUCTIONS FOR DEEP BREATH . AND RN AT BEDSIDE . ENDTIDAL CHANGED , HUMDITITY FROM THE LINES DRAINED .
[2025-05-10 10:33] LABS: BLOOD/HGB, URINE MODERATE (Negative); KETONE, URINE NEGATIVE (Negative); LEUK ESTERASE, URINE NEGATIVE (negative); NITRITE, URINE NEGATIVE (negative)
[2025-05-10 10:36] LABS: BACTERIA, URINE NONE SEEN /hpf (negative); CASTS, URINE NONE SEEN \\lpf; CRYSTALS, URINE NONE SEEN (0-1+); EPITHELIAL CELLS, URINE 0 /lpf (0-1+); REFLEX CULTURE, URINE No (No)
--- NOTE | 2025-05-10 11:57 | NUR ---
PT ALEJANDRO AMIN FOR VISIT. PROVIDED PRAYER.
[2025-05-10] MEDS ORDERED: VANCOMYCIN HCL 125 MG CAP PO SCH (12:15)
--- NOTE | 2025-05-10 13:00 | NUR ---
ORDER RECEIVED FOR MIDLINE FOR DECREASED VEIN ACCESS. PT IS CURRENTLY INTUBATED AND LOSING IV ACCESS DAILY. LEFT ARM ASSESSED DUE TO PREVIOUS VENOUS ACCESS WITH ULTRASOUND, IDENTIFIED LEFT UPPER ARM VEINS AND ARTERIES. PT HAS LINE IN THE CEPHALIC CURRENTLY, BASILIC VEIN CHOSEN. 18 G CATHETER TO OCCUPY APPROX 24 % OF VEIN AND IS APPROX 2.5 CM DEEP. ARM PREPPED AND POSITIONED, SUPPLIES SET UP IN STERILE FASHION. ARM WAS CLEANSED AND DRAPED. LEFT BASILIC VEIN ACCESSED WITH 18G MIDLINE CATHETER, PT DID NOT MOVE DURING PROCEDURE, DARK RED, NON PULSATILE BLOOD RETURNED. SALINE LOCK ATTACHED AND FLUSHED WITHOUT RESISTANCE AND BLOOD RETURNED EASILY. MIDLINE SECURED WITH STERILE DRESSING AND LABELED APPROPRIATELY. REPORT TO LINN LARRY, PT RETURNED TO PREVIOUS POSITION AND LEFT ARM WRIST RESTRAIN SECURED.
--- NOTE | 2025-05-10 13:06 | NUR ---
RN CURRENTLY IN ROOM FOR PICC PLACEMENT. PT STARTED SBT 1240, RT AWARE AND WORKING WITH NURSING STAFF. WILL CONTINUE TO TRIAL PATIENT LONG TOLERATING. 1:[address] UPON LEAVING THE ROOM WAS EDUCATED ON C.DIFF AND PRECAUTIONS TO TAKE AND HOW TO CLEAN HOME AFTER BEING WITH PATIENT, VERBALIZED UNDERSTANDING. WAS ALSO GIVEN EDUCATION ON CDIFF FOR HOME.
--- NOTE | 2025-05-10 13:30 | NUR ---
PT TOLERATED FAIR, SHE HAD SOME DISREGULATED BREATHING , FAST AND SHALLOW, FOLLOWED BY MORE NORMAL BREATHING PATTERNS, STILL QUITE SLEEPY , DOES OPEN EYES AND FOLLOW SOME COMMANDS . PT RETURNED TO [facility] . PLAN TO DO ANOTHER CPAP TRIAL TOMORROW.
--- NOTE | 2025-05-10 13:47 | NUR ---
Pt cont. on vent. Per nurses she has improved. Spouse returns and states he has completed papers I gave him yesterday. I asked Janice LARRY, if she would ask Dr. Grijalva to sign if he agrees.
--- NOTE | 2025-05-10 14:00 | NUR ---
PATIENT SBT ATTEMPTED. PATIENT HAS BEEN FOLLWING SOME COMMNADS TODAY WITH OPENING EYES AT TIMES, BUT THEN DOESNT FOLLOW COMMANDS OTHER TIMES. PATIENT INCREASED ON KETAMINE GTT TO ALLOW REST AND IMPROVED VENTILATOR COMPLIANCE. PATIENT HAS EPISODES OF AGITATION AND FREQUESNT BITTING AND GAGGING ON EET. FREQUENT CHECKS OF EET LENGTH AT THE TEETH D/T PATIENT MANIPULATING TUBE WITH HER TONGUE.
--- NOTE | 2025-05-10 16:40 | NUR ---
MD CALLED, REQUESTING TO CHANGE CT TYLENOL TO ORAL SO WE CAN GIVE THROUGH OG. PT CURRENTLY HAS FUNCTIONING RECTAL TUBE IN PLACE. MD ORDERS UPDATED. NO OTHER CONCERNS.
[2025-05-10] MEDS ORDERED: ACETAMINOPHEN 325 MG TAB PO PRN (17:00)
--- NOTE | 2025-05-10 17:40 | NUR ---
PATIENT SITTER AT THE BEDSIDE FOR 1:1 SAFETY. PATIENTS FAMILY ARE NOT PRESENT. PATIENT ON EET AND RESTING NOW AT THIS TIME. PATIENT ON CONTINUOUS TURNING FOR IMPROVED SKIN INTEGRITY. PATIENT RESTRAINS RELEASED Q2 AND ROM PROVIDED. PATIENT POSTIONED WITH PILLOW SUPPORT. ROSA CATHETER IN PLACE AND RECTAL TUBE IN PLACE.
--- NOTE | 2025-05-10 18:46 | NUR ---
PT GAGGING, BITTING ON TUBE. INCREASED KETAMINE TO 1.0MG/KG/HR AT THIS TIME. PRN ATIVAN GIVEN WELL TO HELP CALM PATIENT. RR AT 34. SATS 96% ON VENTILATOR. 1:[address]
--- NOTE | 2025-05-10 19:45 | NUR ---
HANDOFF REPORT RECEIVED FROM LINN LARRY. PATIENT REMAINS INTUBATED AND SEDATED, 1:1 SITTER REMAINS AT PATIENT BEDSIDE. ALL TUBES AND LINES VERIFIED.
--- NOTE | 2025-05-10 19:50 | NUR ---
DR LAUREN LIMA. VERBAL ORDER RECEIVED TO PLACE OG TUBE ON LIWS. DISCUSSED PATIENT ELEVATED TEMPERATURE READINGS - NEW ORDERS ENTERED BY .
--- NOTE | 2025-05-10 20:10 | NUR ---
PATIENT OPENS EYES BRIEFLY WITH THIS RN IN ROOM. PATIENT CONITUES TO COUGH AND GAG ON ET TUBE. PATIENT NOTED TO OCCASIONALLY BITE AT ET TUBE. PATIENT APPEARS TO BE UNCOMFORTABLE. KETAMINE GTT TITRATED PER MEDICATION FLOWSHEET.
[2025-05-10] MEDS ORDERED: KETOROLAC TROMETHAMINE 15 MG/ML VIAL IV PRN (20:30)
--- NOTE | 2025-05-10 20:30 | NUR ---
PATIENT ASSESSMENT COMPLETE. PATIENT REMAINS INTUBATED AND SEDATED. PATIENT VENT SETTINGS FIO2 21%, RR 14, VT 420, PEEP 5. PATIENT REMAINS ON KETAMINE GTT PER MEDICATION FLOWSHEET. PATIENT ETT 23 AT THE TEETH. RASS SCORE -2. PATIET ROSA CATH INTACT. RECAL TUBE IN PLACE WITH BROWN LIQUID OUTPUT, RECTAL TUBE BAG CHANGED. PATIENT NOTED TO HAVE INCREASED TEMP, 101.1- COOLING MEASURES IN PLACE. OG TUBE PLACED ON LIWS. PATIENT REMAINS ON HIGH RISK 1:1 SUICIDE DIRECT OBSERVATION. PATIENT IV SITES WNL. SOFT RESTRAINTS IN PLACE. PATIENT CONTINUES TO OCASSIONALLY COUGH/GAG ON ETT, RT IN ROOM TO ASSESS AND CHECK CUFF PRESSURE. ORAL SUCTION COMPLETED WITH SMALL AMOUNT OF SECRETIONS NOTED. THIS RN REMAINS IN ROOM.
[2025-05-11] VITALS (25 sets, daily range): BP systolic 112–157; BP diastolic 75–107
--- NOTE | 2025-05-11 00:20 | NUR ---
PATIENT TURNED, RECTAL TUBE NOTED TO HAVE SMALL AMOUNT OF STOOL IN BRIEF. PATIENT ELISA CARE DONE, NEW BRIEF AND CHUCKS PAD PLACED. PASSIVE ROM COMPLETE IN ALL EXTREMITIES. PATIENT ORAL CARE COMPLETED. ETT 23 AT THE LIPS. PATIENT CONTINUES TO HAVE OCCASIONAL COUGH/GAG. RASS SCORE -1. PATIENT REMAINS ON KETAMINE GTT PER MEDICATION FLOWSHEET. RESTRAINTS IN PLACE. SCD'S ON. PATIENT OPENS EYES BRIEFLY DURING ORAL CARE. 1:1 SITTER REMAINS AT BEDSIDE.
--- NOTE | 2025-05-11 02:00 | NUR ---
PRN TORADOL GIVEN PER EMAR FOR ELEVATED TEMPERATURE OF 100.2.
--- NOTE | 2025-05-11 02:15 | NUR ---
patient coughing/gagging and biting at ETT. PRN Ativan given per EMAR. patient remains on Ketamine gtt per medication flowsheet.
--- NOTE | 2025-05-11 03:35 | NUR ---
PATIENT KETAMINE GTT TITRATED PER MEDICATION FLOWSHEET. PATINET VENT SETTINGS UNCHANGED. TEMPERATURE REMAINS ELEVATED AT 100.0. ORAL CARE PROVIDED. PATIENT ROSA CATH INTACT. PATIENT RECTAL TUBE REMAINS IN PLACE. PATIENT APPEARS TO BE COMFORTABLE AT THIS TIME. RESTRAINTS REMAIN IN PLACE. 1:1 SITTER BEDSIDE.
[2025-05-11 05:25] LABS: BASOPHILS 0.3 % (0.1-1.2); EOSINOPHILS 1.7 % (0.7-5.8); LYMPHOCYTES 17.6 % (19.3-51.7); MCH 28.5 PG (25.6-32.2); MCHC 33.5 g/dL (32.2-35.5); MCV 85.0 fL (79.4-94.8); MONOCYTES 9.1 % (4.7-12.5); NEUTROPHILS 70.6 % (34.0-71.1); RBC 4.14 M/uL (3.93-5.22)
[2025-05-11 05:36] LABS: GLOMERULAR FILTRATION RATE,EST 115.0 mL/min (>60); UREA NITROGEN 14.0 mg/dL (7-18)
--- NOTE | 2025-05-11 06:15 | NUR ---
PATIENT COUGHING AND GAGGING AT ET TUBE. PATIENT NOTED TO BE BITTING AT ET TUBE. PATIENT ATTEMPTS TO SIT UP IN BED, WITH EYES OPEN. PATIENT INCONSOLABLE, WITH COMFORT MEASURES . PATIENT SPO2 LEVEL DROPS, PATIENT SUCTIONED. PRN DOSE OF ATIVAN GIVEN PER EMAR. RESTRAINTS IN PLACE. VENT SETTINGS UNCHANGED AT THIS TIME. THIS RN REMAINS AT BEDSIDE.
--- NOTE | 2025-05-11 06:54 | NUR ---
PATIENT TURNED, SMALL AMOUNT OF STOOL NOTED IN BRIEF. NEW BRIEF AND CHUCKS PAD PLACED. ELISA CARE PROVIDED. ROSA CARE COMPLETE. PATIENT HAIR BRUSHED. ORAL CARE PROVIDED. VENT SETTINGS UNCHANGED. KETAMINE GTT TITRATED PER MEDICATION FLOWSHEET. 1:1 SITTER REMAINS AT PATIENT BEDSIDE. SOFT RESTRAINTS IN PLACE.
--- NOTE | 2025-05-11 07:45 | NUR ---
REPORT RECIVED FROM ABRIL LARRY MANAGER CONTINUOUS IMPROVEMENT STAFF. PATIENT TITRATED TO 0.75MG/KG/HR THIS AM. PATIENT HAS RESTAL TUBE IN PLACE WITH LESS DRAINAGE OVERNIGHT. DRAINAGE BAG CHANGED. PATIENT ON LOW INT. SUCTION. PATIENT VENTILATOR REMAINS UNCHANGED. PATIENT LIFTED IN OVERHEAD LIFT AND BED READJUSTED. PATIENT TOLERATED WELL. PATIENT HAS A 1:1 SITTER WITH HER A TALL TIMES FOR PATIENT SAFETY. NO FAMILY AT THE BEDSIDE THIS AM.
--- NOTE | 2025-05-11 09:40 | NUR ---
REVIEWED PLAN OF CARE WITH MD, RT, AND FAMILY AT BEDSIDE. SCHEDULED DOSE OF ATIVAN GIVEN AND TITRATED DOWN ON KETAMINE. WILL DO WEANING TRIAL AND SBT TODAY AND MONITOR FOR POTENTIAL EXTABATION. PATIENT VITALS STABLE. URINE OUTPUT REVIEWED WITH MD. PATIENT BM HAVE SLOWED AND LESS LIQUID STOOL PRESENT. PATIENT RESTRAINTS RELEASED AND ROM COMPLETED. RESTRAINTS CHECKED AND IN PLACE. SITTER AT BEDSIDE FOR 1:1 MONITORING. RN IN THE ROOM TO MONITOR SEDATION.
--- NOTE | 2025-05-11 12:29 | NUR ---
NURSE IN AT BEDSIDE D/T APNEA ALARM. PATIENT HAS BEEN ON COMPLETELY OFF SEDATION SINCE 1029 PATIENT ONLY WAKEFUL FOR <10 SECONDS AND FOLOWING MINIMAL COMMANDS. PATIENT STARTING TO HAVE APNEA EPISODES MORE FREQUENTLY AND FIO2 INCREASING SLOWLY. CALLED RT AND RT DOWN TO SWITCH MODES TO VC-AC. WILL LEAVE SEDATION GTT OFF AT THIS TIME. RT IN ROOM.
--- NOTE | 2025-05-11 15:37 | NUR ---
PATIENT IS NPO. TUBE FEEDING STOPPED THE EVENING OF 05/09 DUE TO EMESIS. PATIENT CURRENTLY NOT RECEIVING ANY NUTRITION. IF PATIENT UNABLE TO BE WEANED OFF THE VENT WITHIN 48 HRS, CONSIDER RESTARTING TUBE FEEDS USING JEVITY 1.2 CONTINUOUS FEED STARTING AT 20 ML/HR TO PROTECT GUT INTEGRITY. IF UNABLE TO EXTUBATE 24 HRS AFTER START OF FEEDS, I SUGGEST INCREASING RATE TO 30 ML X 8 HRS THEN 40 ML/HR. ULTIMATE GOAL RATE WOULD BE 80 ML/HR TO MEET PATIENT'S ESTIMATED NUTRITION NEEDS OF [id number] CALORIES (12-15 TEETEE/KG ADMIT WT) AND 111-148 GM PROTEIN (1.5-2.0 GM/KG ADMIT WT). PATIENT REMAINS AT HIGH RISK. RD TO FOLLOW UP WITHIN 5 DAYS.
--- NOTE | 2025-05-11 16:44 | NUR ---
Update from. Pt remains intubated, failed trial to dc. I spoke with the spouse earlier. He attempted to have the hospitalist and pts pcp sign his FMLA papers. He was told to take them to his PCP. He asked what he should do and I encouraged him to take them to his PCP. It is up to the individual if they sign the papers.
--- NOTE | 2025-05-11 17:35 | NUR ---
PATIENT IS MUCH MORE WAKEFUL AT THIS TIME. RT IN AT THE BEDSIDE AND PATIENT FOLLOWING FULL COMMANDS AND LIFTING ARMS AND HEAD OFF THE BED ON COMMAND. STOPPED KETAMINE GTT. PRN ATIVAN WAS GIVEN 30 MIN PRIOR FOR INCREASED ANXIETY. MD CALLED TO BEDSIDE FOR POSSIBLE EXTABATION.
--- NOTE | 2025-05-11 18:21 | NUR ---
PATIENT EXTABATED AND TOLERATED WELL. FOLLOWING COMMANDS. PATIENTS NOTIFIED. PATIENT UPDATED ON PLAN OF CARE. ORAL CARE PROVIDED FOR PATIENT STATING SHE HAS VERY DRY MOUTH. SITTER REMAINS AT BEDSIDE FOR 1:1.
--- NOTE | 2025-05-11 18:22 | NUR ---
UPDATED PATIENT WHAT BROUGHT PATIENT TO HOSPITAL. PATIENT REPORTS SHE TOOK A WHOLE BOTTLE OF BACLOFEN AND BOTTLE OF VALIUM. PATIENT DENIES ANY OTHER MEDICATIONS. PATIENT REPORTS SHE IS NOT SUICIDAL AND HAS NO PLAN CURRENTLY. 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 UPDATED THAT SHE WILL HAVE A 1:1 SITTER WITH HER FOR HER SAFETY. PATIENT DOES SEEM TO BE A LITTLE OFF AND STATES SHE FEELS "WHOOO" EDUCATED SHE WAS GETTING A SEDATIVE MEDICATION FOR WHILE SHE WAS INTABATED THAT MAY STILL BE IN AFFECT. PATIENT HAS HER GLASSES IN PLACE. RESTRAINS WERE REMOVED UPON EXTABATION.
--- NOTE | 2025-05-11 19:45 | NUR ---
handoff report received from day shift RN. patient resting in bed, with at bedside. patient 1:1 sitter remains at bedside. no acute distress noted. patient has no needs at this time.
--- NOTE | 2025-05-11 20:05 | NUR ---
PATIENT ASSESSMENT COMPLETE. PATIENT DROWSY, BUT EASILY AWAKENS WITH VERBAL STIMULI. PATIENT HALLUCINATING, STATES SHE IS SEEING BATS AND ANIMALS. PATIENT AT BEDSIDE. PATIENT ROSA INTACT, DRAINING CONCENTRATED URINE. PATIENT RECTAL TUBE IN PLACE. PATIENT CONTINUES TO HAVE LIQUID BM. PATIENT ON ROOM AIR TOLERATING WELL. PATIENT RIGHT UPPER ARM AC AND LEFT UPPER ARM IV SITES TAKEN OUT, TIP INTACT AND SITES COVERED WITH GAUZE AND COBAN. PATIENT SCD'S IN PLACE. PATIENT SLOW TO RESPOND WITH QUESTIONS, BUT ABLE TO FOLLOW COMMANDS. 1:1 SITTER REMAINS AT PATIENT BEDSIDE. NO NEEDS AT THIS TIME.
--- NOTE | 2025-05-11 20:18 | NUR ---
VISITED WITH IN FAYE. RELIEVED THAT PT IS MORE AWAKE AND ABLE TO TALK. EXPRESSED RELIEF AND GRATITUDE. NUCLEAR DESIGN ENGINEER PROVIDED SUPPORTIVE PRESENCE, PRAYER, ENCOURAGED SELF CARE. PT EXPRESSED GRATITUDE, HOPE, FAMILY CONNECTIONS SOURCE OF STRENGTH.
--- NOTE | 2025-05-11 22:03 | NUR ---
patient able to swallow water with no concerns. patient provided with apple juice as well. patient sitting up in bed. epstein care completed. epstein cath intact and draining dark yellow urine. rectal tube in place, patient continues to have liquid stool. patient continues to have hallucinations, able to follow commands, and interactive with cares. 1:1 sitter at patient bedside.
--- NOTE | 2025-05-11 22:09 | NUR ---
RT REPLACED FILTER ON [facility] HOME AUTO CPAP 5-15 UNIT. ALSO, FFM WAS REPLACED DUE TO HERS BEING TORE AT THE BOTTOM.
[2025-05-12] VITALS (13 sets, daily range): BP systolic 96–128; BP diastolic 62–91
--- NOTE | 2025-05-12 00:26 | NUR ---
PATIENT PROVIDED WITH SIPS OF APPLE JUICE. CPAP PLACED ON PATIENT. PATIENT REPOSITIONED IN BED. NO FURTHER NEEDS AT THIS TIME. 1:1 SITTER REMAINS AT BEDSIDE.
--- NOTE | 2025-05-12 01:38 | NUR ---
pt resting in bed with cpap in place. pt tolerating cpap at this time. Respiratons even and unlabored. pt c/o nausea but states that it's tolerable at this time. pt c/o 5/10 pain in the R. AC IV. Iv site assessed and WNL at this time. after assessment of the IV site, pt states, "it does not hurt as much" referring to the IV site. Kaplan intact and draining dark yellow colored urine.Rectal tube intact. 1:[address] pt denies any needs at this time. pt declines to be repositioned at this time. vs stable at this time.
--- NOTE | 2025-05-12 02:49 | NUR ---
patient awake, request to take off CPAP. patient sat up in bed, provided with orange juice per request. CBG taken; 98. patient vital signs stable. no further needs at this time. 1:1 sitter remains at bedside.
--- NOTE | 2025-05-12 03:30 | NUR ---
Skin and epstein care complete. barrier cream applied to mayela area d/t reddened skin. pt c/o nausea while repostioning, pt medicated per EMAR. epstein and rectal tube intact at this time. midline saline locked. ice pack applied to R. upper arm d/t inflammation from previous IV site. patient repositioned onto left side per patient request. patient provided PO fluids. patient continues to have a nonproductive cough at times. patient updated on plan of care. new brief and chucks pad placed. 1:[address] at this time. vitals stable. bed in lowest position. patient denies further needs at this time.
--- NOTE | 2025-05-12 04:40 | NUR ---
patient desats as low as 86% while asleep. Patient awakens after verbal stimulation and oxygen saturation is back up to 97% on RA. patients home CPAP placed. Medication administered per EMAR. pt denies needs at this time. 1:[address] at this time.
[2025-05-12 05:27] LABS: BASOPHILS 0.5 % (0.1-1.2); EOSINOPHILS 3.5 % (0.7-5.8); LYMPHOCYTES 18.8 % (19.3-51.7); MCH 27.7 PG (25.6-32.2); MCHC 32.7 g/dL (32.2-35.5); MCV 84.8 fL (79.4-94.8); MONOCYTES 8.7 % (4.7-12.5); NEUTROPHILS 67.7 % (34.0-71.1); RBC 4.15 M/uL (3.93-5.22)
[2025-05-12 05:45] LABS: ALT (SGPT) 66.0 U/L (14-59); AST (SGOT) 63.0 U/L (15-37); GLOMERULAR FILTRATION RATE,EST 115.0 mL/min (>60); PHOSPHORUS, INORGANIC 3.2 mg/dL (2.5-4.9); PROTEIN, TOTAL 6.1 g/dL (6.4-8.2); UREA NITROGEN 14.0 mg/dL (7-18)
--- NOTE | 2025-05-12 06:36 | NUR ---
[facility] CRISIS LINE CALLED. FACE SHEET SENT OVER PER REQUEST.
--- NOTE | 2025-05-12 06:39 | NUR ---
IN PT ROOM. PT ROSA AND RECTAL TUBE INTACT. PT PROVIDED PO FLUIDS. PT TOLERATES PO FLUIDS WELL. PT HAS NO FURTHER NEEDS AT THIS TIME. PT OFF CPAP AND ON RA. PT TOLERATING RA W/O SIGNS OF ACUTE DISTRESS. RR EVEN AND UNLABORED. VITAL SIGNS STABLE 1:[address]
[2025-05-12] MEDS ORDERED: POTASSIUM CHLORIDE 40 MEQ,LIDOCAINE HCL 1% 40 MG in DEXTROSE 5% 250 ML IV ONE (08:30)
--- NOTE | 2025-05-12 08:58 | NUR ---
CARES BEING COMPLETED. CONTINUED MEDICAL NEEDS. CCS NOTIFIED SHE IS EXTUBATED. WILL NEED PSYCH EVAL PRIOR TO DC.
--- NOTE | 2025-05-12 09:15 | NUR ---
RIGHT AC IV ACCESS NOTED TO BE SWOLLEN AND APPEAR INFILTRATED UPON ABX COMPLETION. MD AWARE, NO CURRENT IV ACCESS AT THIS TIME WITH MIDLINE SUSPECTED TO HAVE CLOT.
[2025-05-12] MEDS ORDERED: ARTIFICIAL TEARS 15 ML BTL OU PRN (09:45)
--- NOTE | 2025-05-12 09:55 | NUR ---
PT PROVIDED COFFEE PER DIET ORDER TO ADVANCE TOLERATED - PT REPORTS NO DIFFICULTY SWALLOWING WITH SIPS, NO DIFFICULTY WITNESSED.
--- NOTE | 2025-05-12 10:16 | NUR ---
FAMILY EXCUSED FROM ROOM FOR CCS CONSULT/EVAL. POISON CONTROL UPDATED VIA TELEPHONE ON PT STATUS, NO NEW RECOMENDATIONS FROM FROM THEM AT THIS TIME.
--- NOTE | 2025-05-12 11:00 | NUR ---
PT UP TO EDGE OF BED AND THEN AMBULATES TO CHAIR WITH PT/OT. BED BATH COMPLETE, PRAL CARE COMPLETE. RECTAL TUBE DC'D AND ATTENDS IN PLACE. ROSA CARE COMPLETE.
--- NOTE | 2025-05-12 11:15 | NUR ---
VISITED DURING SPIRITUAL CARE ROUNDS. PT STATED NO IMMEDIATE NEEDS, SAYING, "TODAY IS A GOOD DAY." WINDOW AND SIDING CRAFTSMAN ENCOURAGED FOCUS ON PRESENT, EXPLORED IMPROVING COPING MECHANISMS, ENCOURAGED SELF CARE, REMINDED PT OF SOCIAL AND FAMILY CONNECTIONS SOURCE OF STRENGTH. PT EXPRESSED GRATITUDE, HOPE.
--- NOTE | 2025-05-12 12:49 | NUR ---
MD NOTIFIED VIA PHONE ON US RESULTS OF LEFT ARM POSITIVE FOR SVT - WARM COMPRESS TO BE APPLIED.
[2025-05-12] MEDS ORDERED: IBUPROFEN 800 MG TAB PO PRN (13:00)
--- NOTE | 2025-05-12 13:24 | NUR ---
PT CONT TO REST WITH EYES CLOSED, RESP CONT TO BE 30, PT DENIES FEELING SHORT OB BREATH WHEN ASKED. PT ALSO ASSISTED WITH BREATHING EXERCISES AND COUGHING.
[2025-05-12] MEDS ORDERED: CALCIUM CARBONATE 500 MG CHEW PO ONE (16:00)
[2025-05-12] MEDS ORDERED: POTASSIUM CHLORIDE 10 MEQ TABCR PO ONE (16:00)
[2025-05-12] MEDS ORDERED: FAMOTIDINE 20 MG TAB PO SCH (16:30)
--- NOTE | 2025-05-12 16:37 | NUR ---
PT RESTING IN CHAIR VISITING WITH FRIEND. TUMS PROVIDED FOR HEART BURN - REPORTS NAUSEA IS WORSE WITH EATING. DRINKING APPLE JUICE WITHOUT DIFFICULTY. REPORTS TYLENOL IMPROVED PAIN LEVEL "A LITTLE". CALL LIGHT IN REACH.
--- NOTE | 2025-05-12 18:37 | NUR ---
PT USES CALL LIGHT TO REPORT 7/10 ANXIETY AND HEARTBURN. PRNS ADMINISTERED INTO RIGHT UPPER IV SITE WITHOUT DIFFICULTY.
[2025-05-12] MEDS ORDERED: AZITHROMYCIN 250 MG TAB PO ONE (19:15)
[2025-05-12] MEDS ORDERED: AMOXICILLIN/CLAVULANATE K 875 MG TAB PO SCH (19:15)
--- NOTE | 2025-05-12 20:00 | NUR ---
PATIENT REPROT RECIEVED FROM DAY SHIFT RN. PATIENT RESTING IN BED AND WATCHIGN TV. PATIENT HAS ROSA CATHETER IN PLACE. PATIENT DENIES ANY NEEDS AT THIS TIME. PATIENT REPORTS WANTING TO GET SOME BETTER SLEEP TONIGHT.
--- NOTE | 2025-05-12 21:15 | NUR ---
PATIENT RSTING IN BED. PATIENT SAT UP IN BED TO SHARON MEDICATIONS AND TOLERATED WELL. PATIENT DENIES ANY HALLUCINATIONS THIS EVENING, BUT WAS EXPERIENCING SOME THIS MORNING. PATIENT IS ALERT AND ORIENTED. PATIENT DENIES ANY THOUGHTS OF SELF HARM. PAIN IN HIP AND LEFT ARM. WARM PACK APPLIED TO ARM. TYLENOL GIVEN. PATIENT NOW RESTING IN BED. ROSA CATHETER DRAINED. CALL LIGHT IN REACH. PATIENT ON MONITOR. PATIENT UPDATED ON PLAN OF CARE. NO OTHER QUESTIONS AT THIS TIME.
--- NOTE | 2025-05-12 23:40 | NUR ---
PATIENT CALLED AND REPORTED SHE COUGHED UP SOME BLOOD TINGED SPUTUM. PATIENT ROSA EMPTIED AND VITALS DONE WHILE RN IN ROOM. UPDATED PATIENT THAT SHE IS NOW A MEDSURG PATIENT AND MAY TRANSFER TO THE MEDICAL UNIT [facility].
--- NOTE | 2025-05-12 23:53 | NUR ---
REPORT GIVEN TO ARMANDO LARRY ON MEDICAL UNIT. STAFF HERE TO TRANSFER PATIENT IN BED TO ROOM 112 ON MEDICAL UNIT. ALL BELONGIGNS SENT WITH PATIENT. PATIENT AGREEABLE TO PLAN OF CARE. PATIENT WORRIED ABOUT HER NOT BEING ABLETO FIND HER IN THE AM. EDUCATED PATIENT WE WILL TRY AND CALL HIM ON DAYSHIFT OR THE CCU STAFF WILL ASSIST HIM TO ROOM 112.
[2025-05-13] VITALS (9 sets, daily range): BP systolic 97–123; BP diastolic 54–83
--- NOTE | 2025-05-13 00:04 | NUR ---
2355- PT TRANSFERRED FROM ICU TO ROOM 112. PT ALERT AND ORIENTED TO ALL. PLEASANT AND COOPERATIVE. ON ROOM AIR, HOME CPAP AT BEDSIDE. F/C PATENT DRAINING YELLOW URINE. SCDS IN PLACE. ORIENTED TO ROOM. ON CONTACT ENTERIC PRECAUTIONS. 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 PT DENIES C/O PAIN AT THIS TIME.
--- NOTE | 2025-05-13 01:29 | NUR ---
awake, on room air, home cpap at bedside, not using at this time. c/o hip and L arm pain. medicated with Ibuprofen 800mg po. alert and oriented, scds in place
--- NOTE | 2025-05-13 03:14 | NUR ---
Resting, eyes closed,using CPAP at this time. no s/sx distress, warm pds to L upper arm, scds in place
--- NOTE | 2025-05-13 05:36 | NUR ---
RESERVOIR ENGINEER OBTAINEC VITALS AND I&O. PT STATES NO NEEDS AT THIS TIME. CALL LIGHT WITHIN REACH.
[2025-05-13 05:57] LABS: BASOPHILS 0.9 % (0.1-1.2); EOSINOPHILS 4.0 % (0.7-5.8); LYMPHOCYTES 27.6 % (19.3-51.7); MCH 27.7 PG (25.6-32.2); MCHC 32.7 g/dL (32.2-35.5); MCV 84.8 fL (79.4-94.8); MONOCYTES 8.5 % (4.7-12.5); NEUTROPHILS 58.4 % (34.0-71.1); RBC 4.33 M/uL (3.93-5.22)
[2025-05-13 06:16] LABS: ALT (SGPT) 75.0 U/L (14-59); AST (SGOT) 60.0 U/L (15-37); GLOMERULAR FILTRATION RATE,EST 117.0 mL/min (>60); PROTEIN, TOTAL 6.0 g/dL (6.4-8.2); UREA NITROGEN 9.0 mg/dL (7-18)
--- NOTE | 2025-05-13 07:15 | NUR ---
RECIEVED REPORT FROM KENDY ROBERTS. PT LYING IN BED VISITING WITH . FRESH WATER PROVIDED PER PT REQUEST. PT STATES NO FURTHER NEEDS AT THIS TIME, CALL LIGHT WITHIN REACH.
--- NOTE | 2025-05-13 08:47 | NUR ---
PT UP TO BSC WITH FWW AND 1PA. PT BACK TO BED, NEW DEPENDS IN PLACE, ELISA CARE COMPLETED. PT SITTING UP IN BED EATING BREAKFAST INDEPENDENTLY W/O DIFFICULTY. PT TAKES PO MEDICATIONS W/O DIFFICULTY. PT AT THE BEDSIDE. PT STATES NO FURTHER NEEDS AT THIS TIME, CALL LIGHT WITHIN REACH.
[2025-05-13] MEDS ORDERED: MAGNESIUM SULFATE 0 ML IV ONE (09:40)
--- NOTE | 2025-05-13 11:25 | NUR ---
POISON CONTROL CALLS AND SPEAKS WITH THIS RN TO OBTAIN UPDATE ON PT STATUS. PT CONTROL TRAVEL ATTENDANTS STATES THAT THE CASE WOULD BE CLOSED.
[2025-05-13] MEDS ORDERED: POTASSIUM CHLORIDE 10 MEQ TABCR PO ONE (11:30)
--- NOTE | 2025-05-13 11:39 | NUR ---
PT SITTING UP IN BED, TWO VISITORS IN THE ROOM. CALL LIGHT WITHIN REACH. GOT PT WATER WITH NO ICE, REQUESTED AND A HEAT PACK FOR HER ARM. CLEANED ROOM.
[2025-05-13] MEDS ORDERED: PHARMACY RENAL DOSE ADJUSTMENT 1 DOSE MISC PO SCH (12:00)
--- NOTE | 2025-05-13 12:30 | NUR ---
PHYSICAL THERAPY AT THE BEDSIDE. CALL LIGHT WITHIN REACH.
[2025-05-13] MEDS ORDERED: POTASSIUM CHLORIDE 10 MEQ TABCR ONE (13:42)
--- NOTE | 2025-05-13 14:48 | NUR ---
pt resting in bed, 35% head up. two visitors in room. pt has water, got her a menu for dinner. call light within reach.
--- NOTE | 2025-05-13 14:54 | NUR ---
DR. AGUILAR STATES TO DC ROSA CATHETER. ORDER ENTERED, REPEAT BACK PERFORMED.
--- NOTE | 2025-05-13 15:10 | NUR ---
ROSA CATHETER DC'D, PT TOLERATES WELL, PT EDUCATION ON VOIDING POST REMOVAL, PT VERBALIZES UNDERSTANDING. PT HAS SMALL INCONTINENT LIQUID BM IN BREIF, PT ABLE TO ROLL TO SIDE INDEPENDENTLY, PT CLEANED AND ELISA CARE COMPLETED. NEW BREIF IN PLACE, BARRIER CREAM IN PLACE. PT STATES NO FURTHER NEEDS AT THIS TIME. CALL LIGHT WITHIN REACH.
--- NOTE | 2025-05-13 16:52 | NUR ---
PT ABLE TO VOID AT THIS TIME. PT LYING IN BED, STATES NO FURTHER NEEDS AT THIS TIME, CALL LIGHT WITHIN REACH.
[2025-05-13] MEDS ORDERED: AZITHROMYCIN 250 MG TAB PO SCH (18:00)
--- NOTE | 2025-05-13 19:24 | NUR ---
Pt awake, in chair, flat affect but cooperative, alert and oriented to all. sutures R forehead, bruised eye, denies visual changes. bruised areas over body healing. Up back to bed with 1PA/FWWW tolerated very well, steady gait. IVF infusing w/o problems. using urinal, voiding small amounts of yellow urine. denies c/o pain at this time. Allevyn placed to coccyx area, red, blancheable. procedure explained stated understanding.
--- NOTE | 2025-05-13 19:31 | NUR ---
Pt awake, on room air, sitting up in chair, denies c/o pain. Family at bedside
--- NOTE | 2025-05-13 19:56 | NUR ---
PATIENT IS LAYING IN BED. PATIENTS WATER WAS REFILLED AND A WARM BLANKET WAS PROVIDED. PATIENT CALL LIGHT IS WITHIN REACH AND NO FURTHER NEEDS ARE THIS TIME.
--- NOTE | 2025-05-13 21:01 | NUR ---
PATIENT IS LAYING IN BED. PATIENTS VITAL SIGNS AND I&OS WERE DONE. A WARM COMPRESS WAS PROVIDED FOR PATIENTS ARM. PATIENTS CALL LIGHT IS WITHIN REACH AND NO FUTHER NEEDS AT THIS TIME.
--- NOTE | 2025-05-13 21:34 | NUR ---
IN BED, TURNS SELF, USING HOME CPAP AT THIS TIME. C/O MILD R HIP PAIN, MEDICATED WITH TYLENOL 650MG PO. IV SL JANE INTACT. BRUISING OVER ARMS HEALING. FIRM AREA LUP MID UPPER ARM TO MID LOWER ARM PRESENT, NO C/O PAIN AT SITE, REDNESS PRESENT ABOVE THROMBUS AREA TO AXILLARY AND HOULDER AREA. LUNGS CLEAR SLIGHTLY DIM AT BASES, CLEARED WITH CDB. ABD LARGE SOFT, LBM TODAY, USING ATTENDS. TRACE EDEMA TO HANDS AND LE CHRONIC PER PT. SCDS IN PLACE. REPOSITIONS SELF IN BED. DENIES HALLUCINATIONS OF SELF HARM BEHAVIOR AT THIS TIME
--- NOTE | 2025-05-14 00:36 | NUR ---
PATIENT LAYING IN BED. PATIENT WAS ASSISTED WITH FWW TO THE BATHROOM. PATIENTS CALL LIGHT IS WITHIN REACH AND NO FUTHER NEEDS AT THIS TIME.
--- NOTE | 2025-05-14 00:44 | NUR ---
Used call light, up to BRP, voided and had smiliquid bm greenish colored. c/o seeing blood when wiping. gluteal area very irritated, small hemorroid noted left outer anal area, buttocks cleansed well, and no further episodes of discharge. barrier cream applied. Back to bed 1PA/FWW tolerated well. using CPAP when back to bed, no c/o pain. Continues on Enteric Contact Isolation Precautions
--- NOTE | 2025-05-14 03:53 | NUR ---
Resting, using CPAP at HS. repositioons self in bed. no s/sx distress. Continues on Enteric isolation precautions
[2025-05-14 05:50] VITALS: BP 112/57
[2025-05-14 06:03] LABS: MCH 27.9 PG (25.6-32.2); MCHC 33.3 g/dL (32.2-35.5); MCV 83.7 fL (79.4-94.8); RBC 4.23 M/uL (3.93-5.22)
[2025-05-14 06:05] VITALS: BP 112/57
--- NOTE | 2025-05-14 06:07 | NUR ---
Pt resting, using CPAP, no s/sx distress, repositions self in bed.
[2025-05-14 06:12] LABS: ALT (SGPT) 85.0 U/L (14-59); AST (SGOT) 51.0 U/L (15-37); GLOMERULAR FILTRATION RATE,EST 115.0 mL/min (>60); PROTEIN, TOTAL 6.1 g/dL (6.4-8.2); UREA NITROGEN 10.0 mg/dL (7-18)
[2025-05-14 06:28] LABS: BASOPHILS, MANUAL DIFF 2; EOSINOPHILS, MANUAL DIFF 5; LYMPHOCYTES, MANUAL DIFF 26; MONOCYTES, MANUAL DIFF 5; NEUTROPHILS, MANUAL DIFF 62
--- NOTE | 2025-05-14 07:15 | NUR ---
RECIEVED REPORT FROM KENDY ROBERTS. PT SITTING UP IN BED BRUSHING HER HAIR. PT STATES SHE IS FEELING NAUSEAS, PRN ZOFRAN GIVEN PER PT REQUEST. PT STATES SHE IS HAVING MINIMAL PAIN IN R HIP AND LUE, DENIES NEED FOR PAIN CONTROL MEASURES AT THIS TIME. PT STATES NO FURTHER NEEDS AT THIS TIME, CALL LIGHT WITHIN REACH.
[2025-05-14 09:40] VITALS: BP 125/88
--- NOTE | 2025-05-14 09:42 | NUR ---
pt sitting on the couch. prepared for physical therapy. pt in [place], visitor in room. call light within pt reach and all safety precautions being followed. pt needing nothing more at this time.
[2025-05-14 09:51] VITALS: BP 125/88
--- NOTE | 2025-05-14 10:12 | NUR ---
PT AMBULATING IN HALLWAY WITH PHYSICAL THERAPY, 1PA AND CANE FOR ASSISTANCE.
--- NOTE | 2025-05-14 11:05 | NUR ---
IV DC'D WNL, PT DRESSED IN OWN CLOTHES. AT THE BEDSIDE. PT STATES NO CURRENT NEEDS, CALL LIGHT WITHIN REACH.
[2025-05-14 11:40] VITALS: BP 127/73
--- NOTE | 2025-05-14 11:45 | NUR ---
VSS, PT AMBULATES TO WHEELCHAIR INDEPENDENTLY. HAS ALL OF PT'S BELONGINGS. DC PACKET AND EDUCATION GIVEN, PT AND STATE ALL QUESTIONS HAVE BEEN ANSWERED. PT WHEELED TO FRONT OF BUILDING BY NURSING PERSONEL.
== END 2025-05-14 11:45 | disposition home or self-care (01) | DRG 917 ==
LOC: ED 10:38 → CCU 13:02 → MS 13:02
PROVIDERS: Emergency Medicine; ADMIT Student in an Organized Health Care Education/Training Program; ATTEND Family Medicine
PROC: 5A1955Z Respiratory Ventilation, Greater than 96 Consecutive Hours (ICD-10-PCS; principal; 2025-05-06)
PROC: 0T9B70Z Drainage of Bladder with Drainage Device, Via Natural or Artificial Opening (ICD-10-PCS; 2025-05-06)
PROC: 0DH67UZ Insertion of Feeding Device into Stomach, Via Natural or Artificial Opening (ICD-10-PCS; 2025-05-06)
PROC: 4A133R1 Monitoring of Arterial Saturation, Peripheral, Percutaneous Approach (ICD-10-PCS; 2025-05-06)
PROC: 3E03329 Introduction of Other Anti-infective into Peripheral Vein, Percutaneous Approach (ICD-10-PCS; 2025-05-06)
PROC: 05HC33Z Insertion of Infusion Device into Left Basilic Vein, Percutaneous Approach (ICD-10-PCS; 2025-05-10)
DX: T42.8X2A Poisoning by antiparkinsonism drugs and other central muscle-tone depressants, intentional self-harm, initial encounter (principal); J69.0 Pneumonitis due to inhalation of food and vomit; J96.90 Respiratory failure, unspecified, unspecified whether with hypoxia or hypercapnia; I82.612 Acute embolism and thrombosis of superficial veins of left upper extremity; Z68.42 Body mass index [BMI] 45.0-49.9, adult; T42.4X2A Poisoning by benzodiazepines, intentional self-harm, initial encounter; E87.6 Hypokalemia; K21.9 Gastro-esophageal reflux disease without esophagitis; E66.9 Obesity, unspecified; E83.42 Hypomagnesemia; F39 Unspecified mood [affective] disorder; Z78.1 Physical restraint status
CPT/HCPCS: 36415; 36569; 36592; 70450; 71045; 80048; 80053; 80076; 80307; 81001; 82550; 82803; 83605; 83735; 84100; 84703; 85025; 85060; 87040; 87324; 93005; 93010; 93971; 94002; 94003; 94640; 94799; 97110; 97163; 97167; 97530; 97535; A9270; C1751; G0480; J0295; J1650; J1885; J1938; J2060; J2251; J2405; J2470; J2704; J3010; J3475; J3480; J3490; J7042; J7060; J7121